=== PATIENT | male | born 1975 | race Caucasian/White ===

== ENCOUNTER 2020-06-30 14:26 | Observation (INO) | payer OTHER, SELFPAY ==
[2020-06-30] VITALS (24 sets, daily range): BP systolic 117–167; BP diastolic 65–103; PULSE 76–107; RESP 8–18; TEMP 36.3–36.7; O2SAT 95–100; BMI 36.6
--- NOTE | 2020-06-30 | DI.CT.S_ITS ---
PROCEDURE: CT CERVICAL SPINE WO CON INDICATIONS: Full Trauma TECHNIQUE: Noncontrast 3 mm thick sections acquired from the skull base to the T4 level. Sagittal and coronal reformats were then constructed. For radiation dose reduction, the following was used: automated exposure control, adjustment of mA and/or kV according to patient size. COMPARISON: None. FINDINGS: Image quality: Excellent. Bones: No fractures or dislocations. Visualized superior ribs are intact. There is mild intervertebral disc space loss with uncovertebral joint hypertrophy and endplate degenerative changes at C4-C5 and C5-C6. No significant spinal canal or neural foraminal stenosis. Soft tissues: Prevertebral soft tissues are normal in thickness. No paravertebral hematomas. No apical pneumothoraces. IMPRESSION: No acute fracture or subluxation. Mild degenerative changes at C5-C6 and C6-C7. Dictated by: on 06/30/2020 at 14:10 Approved by: on 06/30/2020 at 14:14
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
[2020-06-30 14:50] LABS: Add Manual Diff / Slide Review NO; Basophils Absolute Auto 0 /uL (0-100); Basophils Percent Auto 0.3 % (0-2); Eosinophils Absolute Auto 0 /uL (0-450); Eosinophils Percent Auto 0.2 % (2-4); Hematocrit 44.8 % (41-53); Hemoglobin 15.2 g/dL (13.5-17.5); Lymphocytes Absolute Auto 1500 /uL (1100-4500); Lymphocytes Percent Auto 14.5 % (25-40); Mean Corpuscular Hemoglobin 28.6 PG (26-34); Mean Corpuscular Volume 84.2 fL (80-100); Monocytes Absolute Auto 500 /uL (0-900); Monocytes Percent Auto 5.4 % (3-14); Neutrophils Absolute Auto 8000 /uL (1500-7000); Neutrophils Percent Auto 79.6 % (50-75); Platelet Count 265 X10^3/uL (150-400); Red Blood Cell Count 5.32 X10^6/uL (4.5-5.9); Red Cell Distribution Width 13.2 % (11.6-14.8)
[2020-06-30 14:54] LABS: INR 1.2 (0.9-1.3); Prothrombin Time 13.4 SECONDS (10.1-12.7)
[2020-06-30 14:56] LABS: PTT Partial Thromboplastin Tim 32 SECONDS (26.4-36.2)
[2020-06-30 15:00] LABS: Alanine Aminotransferase 48 IU/L (<50); Albumin 4.7 g/dL (3.5-5.0); Albumin Globulin Ratio 1.3 (1.0-2.8); Alkaline Phosphatase 88 U/L (38-126); Aspartate Aminotransferase 37 IU/L (17-59); BUN Creatinine Ratio 15.9 (6-22); Bilirubin Total 0.5 mg/dL (0.2-1.3); Blood Urea Nitrogen 25 mg/dL (9-20); Calcium 10.2 mg/dL (8.4-10.2); Carbon Dioxide 25 mmol/L (22-32); Chloride 105 mmol/L (98-107); Creatine Kinase 175 U/L (55-170); Estimated Glomerular Filt Rate 48.5 mL/min (>60); Ethanol (ETOH) < 10 mg/dL; Globulin 3.5 g/dL (1.7-4.1); Glucose 106 mg/dL (70-100); HEMOLYSIS < 15 (0-50); Lipase 54 U/L (23-300); Potassium 4.6 mmol/L (3.4-5.1); Sodium 139 mmol/L (137-145); Total Protein 8.2 g/dL (6.3-8.2)
[2020-06-30 15:11] LABS: Troponin I < 0.012 ng/mL (0.01-0.034)
[2020-06-30 15:15] LABS: CKMB % Relative Index 0.3 % (1.5-5.0); Creatine Kinase MB 0.61 ng/mL (<2.37)
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
[2020-06-30 15:19] LABS: COVID19 -Nasal RAPID Negative (Negative)
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
[2020-06-30 15:52] LABS: UR Morphine/Opiate cutoff 300 Negative (Negative); Ur Creatinine Normal (Normal); Ur Specific Gravity Normal (Normal); Urine Amphetamines Negative (Negative); Urine Barbiturates Negative (Negative); Urine Benzodiazepines Negative (Negative); Urine Cocaine Negative (Negative); Urine MDMA Negative (Negative); Urine Methadone Negative (Negative); Urine Methamphetamines Negative (Negative); Urine Oxycodone Negative (Negative); Urine Phencyclidine Negative (Negative); Urine Tetrahydrocannabinol Negative (Negative); Urine Tricyclic Antidepressant Negative (Negative); Urine pH Normal (Normal)
--- NOTE | 2020-06-30 15:56 | PC.NURSE ---
SEE TRAUMA FLOW SHEET FOR ALL ASSESSMENT INFORMATION
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
--- NOTE | 2020-06-30 16:59 | PC.NURSE ---
Pt was transferred upstairs to acute care. report given to YIFAN Puentes. Pt CSpine not cleared at time of transfer. Per Dr Bill, keep collar in place until cleared by Dr Arreaga.
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
[2020-06-30] MEDS: MORPHINE 2 MG/ML INJ IV (17:49)
[2020-06-30] MEDS: LACTATED RINGERS 1,000 ML 100 ML IV (17:49)
[2020-06-30] MEDS: IBUPROFEN 400 MG TABLET 800 MG PO ×2 (19:24→23:52)
[2020-06-30] MEDS: ACETAMINOPHEN 325 MG TABLET 650 MG PO ×2 (19:25→23:52)
[2020-06-30] MEDS: ONDANSETRON 4 MG/2 ML INJ IV (20:31)
[2020-06-30] MEDS: OXYCODONE IR 5 MG TABLET PO (20:56)
--- NOTE | 2020-07-01 00:28 | PC.NURSE ---
Refused graduated compression stocking, states I'm already hot. Encouraged ankle waving when awake & he's moving in bed. @
--- NOTE | 2020-07-01 00:40 | PC.NURSE ---
Pt. refused graduated compression stocking. States I'm already hot, encouraged ankle waving when awake. He's moving in bed independently, will cont. POC & monitor.
[2020-07-01] MEDS: LACTATED RINGERS 1,000 ML 100 ML IV ×2 (03:00→11:40)
[2020-07-01 03:16] VITALS: BP 123/84; PULSE 77; RESP 18; TEMP 36.3; O2SAT 100
[2020-07-01] MEDS: OXYCODONE IR 5 MG TABLET PO ×5 (03:19→17:46)
[2020-07-01] MEDS: IBUPROFEN 400 MG TABLET 800 MG PO ×3 (05:51→17:43)
[2020-07-01] MEDS: ACETAMINOPHEN 325 MG TABLET 650 MG PO ×3 (05:51→17:43)
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
[2020-07-01 07:17] VITALS: BP 120/74; PULSE 86; RESP 16; TEMP 36.5; O2SAT 100
[2020-07-01] MEDS: ENOXAPARIN 40 MG/0.4 ML SYRINGE SUBCUT (08:25)
[2020-07-01 10:46] VITALS: O2SAT 100
[2020-07-01 11:00] VITALS: BP 128/72; PULSE 80; RESP 16; TEMP 36.7; O2SAT 99
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
[2020-07-01 15:20] VITALS: BP 124/68; PULSE 80; RESP 18; TEMP 36.4; O2SAT 100
--- NOTE | 2020-07-01 15:30 | DI.RAD.S_ITS ---
PROCEDURE: XR CHEST 1V INDICATIONS: trauma, eval for left PTX TECHNIQUE: One view of the chest was acquired. COMPARISON: [facility], CR, XR CHEST 1V, 06/30/2020, 14:23. FINDINGS: Surgical changes and devices: None. Lungs and pleura: Lungs are clear. No pleural effusions or pneumothorax. Mediastinum: Mediastinal contours appear normal. Heart size is normal. Bones and chest wall: No suspicious bony lesions. Overlying soft tissues appear unremarkable. IMPRESSION: No acute disease. No pneumothorax identified. Dictated by: Avila Jara M.D. on 07/01/2020 at 16:07 Approved by: Avila Jara M.D. on 07/01/2020 at 16:08
[2020-07-01 16:14] LABS: Add Manual Diff / Slide Review NO; Basophils Absolute Auto 0 /uL (0-100); Basophils Percent Auto 0.8 % (0-2); Eosinophils Absolute Auto 100 /uL (0-450); Eosinophils Percent Auto 1.7 % (2-4); Hematocrit 39.4 % (41-53); Hemoglobin 13.4 g/dL (13.5-17.5); Lymphocytes Absolute Auto 1700 /uL (1100-4500); Lymphocytes Percent Auto 33.1 % (25-40); Mean Corpuscular Hemoglobin 29.1 PG (26-34); Mean Corpuscular Volume 85.4 fL (80-100); Monocytes Absolute Auto 600 /uL (0-900); Monocytes Percent Auto 10.5 % (3-14); Neutrophils Absolute Auto 2900 /uL (1500-7000); Neutrophils Percent Auto 53.9 % (50-75); Platelet Count 185 X10^3/uL (150-400); Red Blood Cell Count 4.61 X10^6/uL (4.5-5.9); Red Cell Distribution Width 13.7 % (11.6-14.8); White Blood Cell Count 5.3 X10^3/uL (4.5-11.0)
[2020-07-01 16:34] LABS: Alanine Aminotransferase 33 IU/L (<50); Albumin 3.6 g/dL (3.5-5.0); Albumin Globulin Ratio 1.2 (1.0-2.8); Alkaline Phosphatase 72 U/L (38-126); Aspartate Aminotransferase 28 IU/L (17-59); BUN Creatinine Ratio 18.3 (6-22); Bilirubin Total 0.4 mg/dL (0.2-1.3); Blood Urea Nitrogen 20 mg/dL (9-20); Calcium 8.6 mg/dL (8.4-10.2); Carbon Dioxide 28 mmol/L (22-32); Chloride 103 mmol/L (98-107); Estimated Glomerular Filt Rate > 60.0 mL/min (>60); Globulin 2.9 g/dL (1.7-4.1); Glucose 98 mg/dL (70-100); HEMOLYSIS 15 (0-50); Potassium 4.1 mmol/L (3.4-5.1); Sodium 135 mmol/L (137-145); Total Protein 6.5 g/dL (6.3-8.2)
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
== END 2020-07-01 20:10 | disposition home or self-care (01) ==
LOC: ED 15:03 → AC 07-01 08:55
PROVIDERS: Admitting Provider Surgery; Emergency Provider Emergency Medicine; Referring Provider Emergency Medicine; Visit Provider Surgery
DX: S20.219A Contusion of unspecified front wall of thorax, initial encounter (principal); V28.0XXA Motorcycle driver injured in noncollision transport accident in nontraffic accident, initial encounter; Y93.89 Activity, other specified; Y92.89 Other specified places as the place of occurrence of the external cause; Z20.822 Contact with and (suspected) exposure to COVID-19
CPT/HCPCS: 36415; 70450; 71045; 71260; 72125; 72170; 73080; 74177; 80053; 80305; 80320; 82550; 82553; 83690; 84484; 85025; 85610; 85730; 86850; 86870; 86900; 86901; 87635; 93005; 93010; 94762; 96361; 96372; 96374; 96375; 99217; 99218; 99284; 99285; 99291; 99292; C9803; G0378; J1650; J2270; J2405; Q9967